=== PATIENT | male | born 1960 | race African-American/Black ===

== ENCOUNTER 2020-01-18 11:42 | Emergency (ER) | payer MEDICAID ==
[~2020-01-18] VITALS: Ht 170.2 cm; Wt 104.0 kg
[2020-01-18] MEDS ORDERED: DEXAMETHASONE 4MG TABLET PO ONE (13:30)
[2020-01-18 14:56] VITALS: BP 138/73
== END 2020-01-18 15:00 | disposition home or self-care (01) ==
LOC: ER 11:42
DX: Z03.818 Encounter for observation for suspected exposure to other biological agents ruled out (principal); R05 Cough; R06.02 Shortness of breath; R50.9 Fever, unspecified
CPT/HCPCS: 71045; 87635; 93005; 99283; J8540